=== PATIENT | female | born 1970 | race African-American/Black ===

== ENCOUNTER 2025-02-21 08:58 | Day surgery (SDC) | payer OTHER ==
[2025-02-18 16:02] LABS: Absolute Lymphocytes (CBC) 1.2 K/uL (0.7-4.9); Hematocrit 39.2 % (36.0-45.0); Hemoglobin 13.1 g/dL (12.0-15.0); MCH 26.5 pg (27.0-35.0); MCHC 33.4 g/dL (32.0-36.0); MCV 79.5 fL (80-100); MPV 8.5 fL (7.6-11.3); Nucleated RBC Absolute Count 0.0 (0-0); Nucleated Red Blood Cells % 0.0 % (0-0); RBC Red Blood Cell Count 4.93 M/uL (3.86-4.86); White Blood Count 6.00 thou/uL (4.3-10.9)
[2025-02-18 16:18] LABS: Anion Gap 7.7 mEq/L (5.0-15.0); BUN Blood Urea Nitrogen 15.0 mg/dL (7-18); Glucose Level 104.0 mg/dL (74-106); Potassium 3.7 mEq/L (3.5-5.1)
[2025-02-21] MEDS ORDERED: Ringers Lactate 1,000 ML IV ONE (09:11)
[2025-02-21] MEDS ORDERED: LIDOCAINE HCL/EPINEPHRINE 20 ML MDV ONE (09:13)
[2025-02-21] MEDS ORDERED: MIDAZOLAM HCL 2 MG/2 ML INJ ONE (09:43)
[2025-02-21] MEDS ORDERED: LIDOCAINE 1% MPF 5 ML VIAL ONE (09:43)
[2025-02-21] MEDS ORDERED: FENTANYL CITR 100 MCG/2 ML ONE (09:43)
[2025-02-21] MEDS ORDERED: ONDANSETRON 4 MG/2 ML VIAL ONE (09:43)
[2025-02-21] MEDS ORDERED: KETOROLAC 30 MG/ML INJ ONE (10:36)
[2025-02-21 11:07] VITALS: O2SAT 100
[2025-02-21] MEDS: HYDROMORPHONE HCL 0.5 MG/0.5 ML INJ ONE (11:22)
[2025-02-21] MEDS: CODEINE 30MG/APAP 300MG TAB ONE (12:47)
[2025-02-21 14:43] VITALS: BP 135/70; TEMP 97
--- NOTE | 2025-02-21 19:25 | OP ---
Date of Procedure: 02/21/2025 Surgeon: Mariluz Faust MD Preoperative Diagnosis: Postmenopausal bleeding and endometrial polyp. Postoperative Diagnosis: Postmenopausal bleeding and endometrial polyp. Procedures Performed: Operative hysteroscopy and polypectomy with MyoSure Lite, and D and C. Anesthesia: General with LMA. Specimens: Endometrial polyp and curettings. Complications: No complications. Drains: No drains. Condition: The patient's condition is stable. Findings: Endometrial polyp from the right lateral and posterior wall of the endometrial canal was c ompletely resected and endometrial sampling was taken from all gillespie. Estimated Blood Loss: Minimal. Indications: The patient is a 54-year-old in menopause, started on systemic hormone therapy and had irregular postmenopausal bleeding that was not controlled with endometrial tissue was thic k on transvaginal ultrasound, and diagnostic hysteroscopy in the office showed significant sized poly p in the endometrial canal. So, patient was counseled. Endometrial sampling with polypectomy was ad vised to rule out atypia or malignancy before and also to completely remove the polyp, so that we can continue hormone therapy if all the Pap was negative without any interruption and for control of ble eding. Description Of Procedure: After informed consent was re-verified in the preoperative area, she was t celeste back to the OR, placed in supine fashion on the operating table. After general anesthesia was g iven, she was placed in a dorsal lithotomy position in Ahmet stirrups. Vulva, vagina, perineum, medi al thighs were prepped and draped in a sterile fashion. A speculum was placed to expose the cervix. Anterior lip grasped with single-tooth tenaculum. Cervix was dilated to 16-Macedonian and MyoSure scope was taken and the system primed. The set pressure was at 80 mmHg and hysteroscopy was performed thr ough the cervical canal into the uterine cavity. The polyp was well visualized and the outlet was re moved and MyoSure Lite device was opened and inserted. Polypectomy was performed completely to the b ase with this and the endometrial sampling from all gillespie was sampled. All the specimens were sent f or permanent pathology. All the instruments were removed. Instrument, needle, and sponge counts wer e correct. EBL was minimal. The patient was recovered from anesthesia and taken to PACU in stable c ondition. Again, EBL was minimal. The patient will follow up in 1 week for pathology results. Her family was debriefed about her procedure and her findings. YESICA/JEANETTE Voice ID: [id number] Report ID: [id number]
== END 2025-02-21 14:03 | disposition home or self-care (01) ==
LOC: OR 08:58
PROVIDERS: ATTEND Obstetrics & Gynecology
PROC: 0UB98ZZ Excision of Uterus, Via Natural or Artificial Opening Endoscopic (ICD-10-PCS; principal; 2025-02-21 10:45)
DX: N84.0 Polyp of corpus uteri (principal); N95.0 Postmenopausal bleeding
CPT/HCPCS: 93005; 85025; 80048; 36415; 88305; 58558; J1885; J2704; J2003; J2250; J3010; J1171; J2405; J7120